=== PATIENT | male | born 1955 | race Caucasian/White ===

== ENCOUNTER 2018-01-27 15:01 | Emergency (ER) | payer BC ==
[~2018-01-27] VITALS: Ht 172.7 cm; Wt 89.9 kg
[2018-01-27 15:06] VITALS: BP 121/70
--- NOTE | 2018-01-27 15:16 | NUR ---
C/O FEVER SINCE WEDNESDAY; HAD LT INGUINAL HERNIA REPAIR ON 01/17/2018; TAKEN TYLENOL ABOUT 1030 THIS MORNING. DENIES N/V/D; SKIN IS PINK/WARM/DRY; AAOX4 WITH EVEN AND STEADY GAIT; LUNGS CLEAR BL; HR EVEN AND REGULAR; PT DENIES ANY CP, SOB, OR COUGH AT THIS TIME;TEMP CHECKED 100.2F. PATIENT POSITIONED FOR COMFORT; HOB ELEVATED; BEDRAILS UP X2; BED DOWN. ER MD MADE AWARE OF PT STATUS.
[2018-01-27] MEDS ORDERED: ACETAMINOPHEN EXTRA STRENGTH 500 MG TAB PO ONE (15:40)
--- NOTE | 2018-01-27 16:07 | NUR ---
RECHECKED ORAL TEMP 99.9F.
--- NOTE | 2018-01-27 16:24 | NUR ---
CHECKED TEMP AGAIN 99.4 F. PT STATED HE FEELS MUCH BETTER.
[2018-01-27 16:25] VITALS: BP 118/70
== END 2018-01-27 16:26 | disposition home or self-care (01) ==
LOC: MED 15:01
DX: N39.0 Urinary tract infection, site not specified (principal); I10 Essential (primary) hypertension
CPT/HCPCS: 81002; 99283